=== PATIENT | female | born 1985 | race American Indian/Alaskan Native ===

== ENCOUNTER 2019-09-23 12:41 | Emergency (ER) | payer MEDICAID ==
[2019-09-23 13:57] LABS: HCG Qualitative,Urine Positive (Negative)
[2019-09-23 14:03] LABS: Bilirubin,Urine NEG (Negative); Blood,Urine NEG (Negative); Color,Urine Straw (Yellow); Mucus,Urine FEW /HPF; Protein,Urine <15 mg/dL mg/dL (Negative); Urobilinogen,Urine < 2.0 mg/dL (<2.0)
[2019-09-23 14:43] LABS: Basophils % (Auto) 0.3 % (0.0-1.8); Eosinophils # (Auto) 0.1 K/mm3 (0.0-0.4); Eosinophils % (Auto) 0.9 % (0.0-4.3); Hematocrit 36.6 % (30.3-42.9); Hemoglobin 12.1 gm/dl (10.1-14.3); Lymphocytes # (Auto) 3.1 K/mm3 (1.2-5.4); Lymphocytes % (Auto) 27.3 % (13.4-35.0); Mean Corpuscular HGB Conc 33 % (30-34); Mean Corpuscular Volume 88 fl (79-97); Monocytes # (Auto) 0.8 K/mm3 (0.0-0.8); Platelet Count 382 K/mm3 (140-440); Red Blood Count 4.16 M/mm3 (3.65-5.03); Red Cell Distribution Width 14.6 % (13.2-15.2)
[2019-09-23 15:06] LABS: Alanine Aminotransferase 14 units/L (7-56); Albumin 4.4 g/dL (3.9-5); BUN/Creatinine Ratio 18; Blood Urea Nitrogen 9 mg/dL (7-17); Calcium 9.4 mg/dL (8.4-10.2); Hemolysis Index 0
--- NOTE | 2019-09-23 17:08 | Emergency Department Report ---
Chief Complaint: Abdominal Pain Stated Complaint: ABD PAIN Time Seen by Provider: 09/23/19 15:40 - HPI History of Present Illness: 34-year-old female presents to the ED stating that her EDI PROGRAMMER called her at home given her positive results of chlamydia and telling her to come to the ED for evaluation. Patient denies any vaginal discharge, pelvic pain, vaginal bleed, fever, chills, urinary symptoms - ROS Review of Systems: As noted in HPI - Exam Physical Exam: GENERAL: Alert and oriented x3, no apparent distress, Normal Gait, atraumatic. ABDOMEN: No organomegaly was noted,Positive bowel sounds, soft, and non- distended. . Nontender to palpation on all Quadrants, NO CVA tenderness. SKIN: Warm and dry, No lesions, No ulceration or induration present. MSE screening note: Focused history and physical exam performed. Due to findings the following was ordered: ED Medical Decision Making - Lab Data Result diagrams: 09/23/19 14:20 09/23/19 14:20 Laboratory Last Values WBC 11.2 K/mm3 (4.5-11.0) H 09/23/19 14:20 RBC 4.16 M/mm3 (3.65-5.03) 09/23/19 14:20 Hgb 12.1 gm/dl (10.1-14.3) 09/23/19 14:20 Hct 36.6 % (30.3-42.9) 09/23/19 14:20 MCV 88 fl (79-97) 09/23/19 14:20 MCH 29 pg (28-32) 09/23/19 14:20 MCHC 33 % (30-34) 09/23/19 14:20 RDW 14.6 % (13.2-15.2) 09/23/19 14:20 Plt Count 382 K/mm3 (140-440) 09/23/19 14:20 Lymph % (Auto) 27.3 % (13.4-35.0) 09/23/19 14:20 [place] % (Auto) 7.0 % (0.0-7.3) 09/23/19 14:20 Eos % (Auto) 0.9 % (0.0-4.3) 09/23/19 14:20 Baso % (Auto) 0.3 % (0.0-1.8) 09/23/19 14:20 Lymph # 3.1 K/mm3 (1.2-5.4) 09/23/19 14:20 [place] # 0.8 K/mm3 (0.0-0.8) 09/23/19 14:20 Eos # 0.1 K/mm3 (0.0-0.4) 09/23/19 14:20 Baso # 0.0 K/mm3 (0.0-0.1) 09/23/19 14:20 Seg Neutrophils % 64.5 % (40.0-70.0) 09/23/19 14:20 Seg Neutrophils # 7.2 K/mm3 (1.8-7.7) 09/23/19 14:20 Sodium 137 mmol/L (137-145) 09/23/19 14:20 Potassium 3.9 mmol/L (3.6-5.0) 09/23/19 14:20 Chloride 98.4 mmol/L (98-107) 09/23/19 14:20 Carbon Dioxide 25 mmol/L (22-30) 09/23/19 14:20 Anion Gap 18 mmol/L 09/23/19 14:20 BUN 9 mg/dL (7-17) 09/23/19 14:20 Creatinine 0.5 mg/dL (0.7-1.2) L 09/23/19 14:20 Estimated GFR > 60 ml/min 09/23/19 14:20 BUN/Creatinine Ratio 18 % 09/23/19 14:20 Glucose 98 mg/dL (65-100) 09/23/19 14:20 Calcium 9.4 mg/dL (8.4-10.2) 09/23/19 14:20 Total Bilirubin 0.20 mg/dL (0.1-1.2) 09/23/19 14:20 AST 15 units/L (5-40) 09/23/19 14:20 ALT 14 units/L (7-56) 09/23/19 14:20 Alkaline Phosphatase 57 units/L (35-129) 09/23/19 14:20 Total Protein 7.9 g/dL (6.3-8.2) 09/23/19 14:20 Albumin 4.4 g/dL (3.9-5) 09/23/19 14:20 Albumin/Globulin Ratio 1.3 % 09/23/19 14:20 HCG, Quant 72203 mIU/mL (0-4) H 09/23/19 14:20 Urine Color Straw (Yellow) 09/23/19 13:28 Urine Turbidity Hazy (Clear) 09/23/19 13:28 Urine pH 6.0 (5.0-7.0) 09/23/19 13:28 Ur Specific [place] 1.009 (1.003-1.030) 09/23/19 13:28 Urine Protein <15 mg/dl mg/dL (Negative) 09/23/19 13:28 Urine Glucose (UA) Neg mg/dL (Negative) 09/23/19 13:28 Urine Ketones Neg mg/dL (Negative) 09/23/19 13:28 Urine Blood Neg (Negative) 09/23/19 13:28 Urine Nitrite Neg (Negative) 09/23/19 13:28 Ur Reducing Substances Not Reportable 09/23/19 13:28 Urine Bilirubin Neg (Negative) 09/23/19 13:28 Urine Ictotest Not Reportable 09/23/19 13:28 Urine Urobilinogen < 2.0 mg/dL (<2.0) 09/23/19 13:28 Ur Leukocyte Esterase Mod (Negative) 09/23/19 13:28 Urine WBC (Auto) 2.0 /HPF (0.0-6.0) 09/23/19 13:28 Urine RBC (Auto) 4.0 /HPF (0.0-6.0) 09/23/19 13:28 U Epithel Cells (Auto) 4.0 /HPF (0-13.0) 09/23/19 13:28 Urine Mucus Few /HPF 09/23/19 13:28 Urine HCG, Qual Positive (Negative) A 09/23/19 13:28 Blood Type O NEGATIVE 09/23/19 14:20 - Medical Decision Making 34-year-old female who presented for chlamydial infection. Discussed with patient that we will treat her infection and to follow-up with the EDI PROGRAMMER. Patient was in no acute distress. Patient will follow up with [facility] ED Disposition for MSE Clinical Impression: STD (sexually transmitted disease) Disposition: - TO HOME OR SELFCARE Is pt being admited?: No Does the pt Need Aspirin: No Condition: Stable Instructions: Chlamydia Infection (ED), Abdominal Pain (ED) Additional Instructions: Make sure to follow up with the obgyn as discussed. Take all your medications as you've been prescribed. If you have any worsening symptoms or develop new symptoms please return to ED immediately. Prescriptions: Azithromycin 500 mg PO ONCE #2 tablet Referrals: [facility] [Provider Group] - 3-5 Days [facility] [Provider Group] - 3-5 Days Forms: Accompanied Note, Work/School Release Form(ED) Time of Disposition: 17:09
== END 2019-09-23 17:23 | disposition home or self-care (01) ==
LOC: ED 12:41
DX: A56.8 Sexually transmitted chlamydial infection of other sites (principal)
CPT/HCPCS: 36415; 80053; 81001; 81025; 84702; 85025; 86900; 86901

== ENCOUNTER 2020-03-03 15:51 | Outpatient (CLI) | payer MEDICAID | END 2020-03-03 18:10 | disposition home or self-care (01) | LOC: LAB 15:51 → APU 17:23 → LAB 18:10 | PROVIDERS: ATTEND Obstetrics & Gynecology | DX: O26.893 Other specified pregnancy related conditions, third trimester (principal); Z67.41 Type O blood, Rh negative; O16.3 Unspecified maternal hypertension, third trimester; F32.9 Major depressive disorder, single episode, unspecified; Z3A.29 29 weeks gestation of pregnancy | CPT/HCPCS: 86850; 86900; 86901; 96372; J2790 ==

== ENCOUNTER 2020-04-24 14:42 | Outpatient (CLI) | payer MEDICAID ==
[2020-04-24 15:27] VITALS: BP 127/62
--- NOTE | 2020-04-24 17:11 | Ultrasound Report ---
ULTRASOUND OBSTETRIC INDICATION / CLINICAL INFORMATION: QUESTIONABLE IF MEMBRANES ARE RUPTURED - YVON. Clinical Gestational Age (GA): TECHNIQUE: Transabdominal. COMPARISON: None available. FINDINGS: There is a single intrauterine . Heart Rate: 141 beats per minute. Estimated Weight in grams (if calculated): Estimated Weight Growth Percentile (if calculated): Position: cephalic. Cervix: closed. Length in cm (if measured): Placenta: Fundal and free of the os. Amniotic Fluid Volume: normal Amniotic Fluid Index (YVON) in cm (if calculated): 14.1. Maternal Adnexa: No significant abnormality. IMPRESSION: 1. YVON 14.1 Signer Name: Floyd Valdivia MD Signed: 04/24/2020 5:06 PM Workstation Name: [id number]
== END 2020-04-24 16:46 | disposition home or self-care (01) ==
LOC: APU 14:42 → TRG 14:42 → APU 14:45 → TRG 16:46
PROVIDERS: ATTEND Obstetrics & Gynecology
DX: O42.913 Preterm premature rupture of membranes, unspecified as to length of time between rupture and onset of labor, third trimester (principal); Z3A.37 37 weeks gestation of pregnancy
CPT/HCPCS: 59025; 76815

== ENCOUNTER 2020-04-30 01:12 | Outpatient (CLI) | payer MEDICAID ==
[2020-04-30 01:37] VITALS: BP 116/71
== END 2020-04-30 03:50 | disposition home or self-care (01) ==
LOC: TRG 01:12 → APU 01:19 → TRG 03:50
PROVIDERS: ATTEND Obstetrics & Gynecology
DX: O47.1 False labor at or after 37 completed weeks of gestation (principal); Z3A.38 38 weeks gestation of pregnancy
CPT/HCPCS: 59025

== ENCOUNTER 2020-05-03 10:25 | Inpatient (IN) | payer MEDICAID ==
[2020-05-03] MEDS ORDERED: ONDANSETRON 4 MG/2 ML INJ IV PRN ×2 (10:35→21:11)
[2020-05-03] MEDS ORDERED: TERBUTALINE 1 MG/1 ML INJ SUB-Q PRN (10:35)
[2020-05-03] MEDS ORDERED: miSOPROStol 200 MCG TAB PR PRN (10:35)
[2020-05-03] MEDS ORDERED: fentaNYL 100 MCG/2 ML INJ IV PRN (10:35)
[2020-05-03] MEDS ORDERED: AMPICILLIN/NS 2 GM/100 ML 2 GM/100 ML BAG IV ONE (10:35)
[2020-05-03] MEDS ORDERED: METHYLERGONOVINE MALEATE 0.2 MG/ML VIAL IM PRN (10:35)
[2020-05-03] MEDS ORDERED: NALOXONE 0.4 MG/1 ML INJ IV PRN (10:35)
[2020-05-03] MEDS ORDERED: LIDOCAINE (2%) 20 MG/1 ML VIAL 20 ML MDV INFILTRATI NR (10:35)
--- NOTE | 2020-05-03 10:46 | History and Physical Report ---
History of Present Illness Date of examination: 05/03/20 Chief complaint: I'm leaking History of present illness: Pt is a 25 year old -[place] female ALINA 05/13/20 at 38w4d who presents with complaint of rupture of membranes "about two days ago." On exam, the patient's perineum in wet and there is pooling of clear fluid on speculum exam. She reports irregular contractions and denies vaginal bleeding. She does report good movement. 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 She is GBS Negative. Past History Past Medical History: other (ADHD, Morbid Obesity) Past Surgical History: GREENKEEPER/uterine surgery (IUD removal ) GREENKEEPER History: chlamydia (treated with negative test of cure ), herpes, trichomonas (remote from this ) Family/Genetic History: hypertension Social history: no significant social history - Obstetrical History Expected Date of Delivery: 05/13/20 Actual Gestation: 38 Week(s) 4 Day(s) : 5 Para: 3 Hx # Term Pregnancies: 3 Number of Pregnancies: 0 Spontaneous Abortions: 0 Induced : 1 Number of Living Children: 3 Medications and Allergies Allergies Allergy/AdvReac Type Severity Reaction Status Date / Time No Known Allergies Allergy Verified 09/23/19 13:12 Home Medications Medication Instructions Recorded Confirmed Last Taken Type Famotidine [Pepcid] 20 mg PO BID #20 tablet 10/29/13 Unknown Rx Naproxen [Naprosyn] 375 mg PO BID PRN #20 tablet 10/29/13 Unknown Rx Azithromycin 500 mg PO ONCE #2 tablet 09/23/19 Unknown Rx Active Meds: Active Medications Butorphanol Tartrate (Butorphanol 2 Mg/1 Ml Inj) 2 mg IV Q2H PRN PRN Reason: Pain , Severe (7-10) Ephedrine Sulfate (Ephedrine Sulfate 50 Mg/1 Ml Inj) 10 mg IV Q2M PRN PRN Reason: Hypotension Fentanyl (Fentanyl 100 Mcg/2 Ml Inj) 100 mcg IV Q2H PRN PRN Reason: Pain,Severe (7-10) LABOR PAIN Oxytocin/Sodium Chloride (Pitocin/Ns 30 Unit/500ml) 30 units in 500 mls @ 2 mls/hr IV TITR NABOR; Protocol Lactated Ringer's (Lactated Ringers) 1,000 mls @ 125 mls/hr IV DIRECT NABOR Oxytocin/Sodium Chloride (Pitocin/Ns 30 Unit/500ml) 30 units in 500 mls @ 40 mls/hr IV TITR NABOR; Protocol Ampicillin Sodium (Ampicillin/Ns 2 Gm/100 Ml) 2 gm in 100 mls @ 100 mls/hr IV ONCE ONE; Protocol Stop: 05/03/20 11:34 Ampicillin Sodium (Ampicillin/Ns 1 Gm/50 Ml) 1 gm in 50 mls @ 100 mls/hr IV Q4H NABOR; Protocol Lidocaine (Lidocaine (2%) 20 Mg/1 Ml Vial 20 Ml Mdv) 20 ml INFILTRATI ONCE ONE Stop: 05/03/20 10:36 Methylergonovine Maleate (Methylergonovine Maleate 0.2 Mg/Ml Vial) 0.2 mg IM ONCE PRN PRN Reason: Uterine Bleeding Mineral Oil (Mineral Oil 30 Ml Oral Liqd) 30 ml PO QHS PRN PRN Reason: Constipation Misoprostol (Misoprostol 200 Mcg Tab) 800 mcg TN ONCE PRN PRN Reason: Uterine Bleeding Naloxone HCl (Naloxone 0.4 Mg/1 Ml Inj) 0.1 mg IV Q2MIN PRN PRN Reason: Res Rate </= 8 or 02 SAT < 92% Ondansetron HCl (Ondansetron 4 Mg/2 Ml Inj) 4 mg IV Q8H PRN PRN Reason: Nausea And Vomiting Terbutaline Sulfate (Terbutaline 1 Mg/1 Ml Inj) 0.25 mg SUB-Q ONCE PRN PRN Reason: Hyperstimulation/Hypertonicity Review of Systems All systems: negative - Physical Exam Breasts: Positive: deferred Abdomen: Positive: soft (obese, gravid ) Genitourinary (Female): Positive: normal external genitalia Vagina: Positive: other (pooling of clear fluid ) Uterus: Positive: enlarged (gravid ) Extremities: Positive: edema (trace ) - Obstetrical Cervical Dilatation: 3 Cervical Effacement Percentage: 50 station: -3 Uterine Contraction Pattern: Irregular Uterine Tone Measurement Phase: Resting Uterine Contraction Intensity: Mild Results All other labs normal. Assessment and Plan A: IUP at 38w4d PROM Prolonged ROM Right mutlicystic kidney Rh Negative s/p Rhogam 03/03/20 Morbid Obesity Amniotic Band H/o Preeclampsia Bilateral Lower Extremity Edema s/p Vein Referral Chlamydia treated with negative test of cure Genital Herpes without lesion or prodrome GBS Negative P: Admit to labor and delivery Begin antibiotics for prolonged rupture Pitocin induction of labor NICU consult for multicystic kidney Closely monitor maternal and status
[2020-05-03] MEDS ORDERED: BUTORPHANOL 2 MG/1 ML INJ IV PRN (11:00)
[2020-05-03] MEDS ORDERED: ePHEDrine SULFATE 50 MG/1 ML INJ IV PRN ×2 (11:00→13:30)
[2020-05-03] MEDS ORDERED: valACYclovir 500 MG TAB PO SCH (11:00)
[2020-05-03] MEDS ORDERED: OXYTOCIN DRIP 30 UNITS/500 ML BAG IV SCH ×2 (11:00)
[2020-05-03] MEDS: LACTATED RINGERS 1,000 ML IV SCH ×4 (11:25→16:29)
[2020-05-03 11:54] LABS: Hemoglobin 12.4 gm/dl (10.1-14.3); Mean Corpuscular HGB Conc 33 % (30-34); Mean Corpuscular Volume 86 fl (79-97); Platelet Count 330 K/mm3 (140-440); Red Blood Count 4.45 M/mm3 (3.65-5.03); Red Cell Distribution Width 16.1 % (13.2-15.2)
--- NOTE | 2020-05-03 13:04 | Anesthesia Consultation ---
Anesthesia Consult and Med Hx Date of service: 05/03/20 - Airway Anesthetic Teeth Evaluation: Poor ROM Head & Neck: Adequate Mental/Hyoid Distance: Adequate Mallampati Class: Class III Intubation Access Assessment: Possibly Difficult - Pulmonary Exam CTA: Yes - Cardiac Exam Cardiac Exam: RRR - Pre-Operative Health Status ASA Pre-Surgery Classification: ASA3 Proposed Anesthetic Plan: Epidural - Pulmonary Hx Smoking: No Hx Asthma: No Hx Respiratory Symptoms: No SOB: No COPD: No Home Oxygen Therapy: No Hx Pneumonia: No Hx Sleep Apnea: No - Cardiovascular System Hx Hypertension: No Hx Coronary Artery Disease: No Hx Heart Attack/AMI: No Hx Angina: No Hx Percutaneous Transluminal Coronary Angioplasty (PTCA): No Hx Cardia Arrhythmia: No Hx Pacemaker: No Hx Internal Defibrillator: No Hx Valvular Heart Disease: No Hx Heart Murmur: No Hx Peripheral Vascular Disease: No (Bilateral Lower extrimities +3 edema) - Central Nervous System Hx Neuromuscular Disorder: No Hx Seizures: No CVA: No Hx Back Pain: Yes Hx Psychiatric Problems: No - Gastrointestinal Hx Ulcer: No Hx Gastroesophageal Reflux Disease: Yes - Endocrine Hx Renal Disease: No Hx End Stage Renal Disease: No Hx Cirrhosis: No Hx Liver Disease: No Hx Insulin Dependent Diabetes: No Hx Non-Insulin Dependent Diabetes: No Hx Thyroid Disease: No Hx Hypothyroidism: No Hx Hyperthyroidism: No - Hematic Hx Anemia: No Hx Sickle Cell Disease: No - Other Systems Hx Alcohol Use: Yes (not during ) Hx Substance Use: No Hx Cancer: No Hx Obesity: Yes
--- NOTE | 2020-05-03 13:05 | Progress Note ---
Labor Epidural - Labor Epidural Start Time: 13:18 Stop Time: 13:38 Performed by:: MORELIA AUSTIN Procedure: Patient is requesting a laboring epidural for laboring pain. Patient IDed, H&P reviewed, all questions and concerns were answered, and consent was signed. Timeout was performed at bedside. Patient in sitting position. Sterile prep and drape was performed. [3] ml of 1% lidocaine skin wheal at L[3]- L [4]. 18- gauge Tuohy epidural needle was advanced to loss of resistance with air technique 8cm. Negative CSF negative blood. Epidural catheter advanced to [12] centimeters. [NEGATIVE] Aspiration [NEGATIVE] test dose. Sterile dressing applied. Patient tolerated procedure.
[2020-05-03] MEDS ORDERED: NALOXONE 2 MG/2 ML INJ IV PRN (13:30)
[2020-05-03] MEDS ORDERED: fentaNYL-BUPIV 2 MCG/ML-0.125% 200 MCG/100 ML BAG EPIDURAL SCH (14:00)
--- NOTE | 2020-05-03 14:22 | Consultation ---
Consult Note - Parent Education Parent(s) demonstrated understanding of all the information:: Yes Additional Comment: Term male diagnosed prenatally with right pylectasis, resolved polyhydramnios, ?multicystic kidney Mother states specialist did not do another US in office, did not have all information from OB and stated that " can live with one functioning kidney anyway" Explained exam, monitoring of I&O and renal US at 24 HOL to assess status. Explained difference between pylectasis and multicystic kidney. Mother verbalized understanding Assessment and Plan - Assessment Gestation:: 38 Baby's gender: Male - Plan Plan: No need for NICU team to attend delivery, RONNIE sufficient, will assess after delivery Please call NICU with questions
[2020-05-03] MEDS ORDERED: AMPICILLIN/NS 1 GM/50 ML 1 GM/50 ML BAG IV SCH (14:37)
[2020-05-03] MEDS ORDERED: MINERAL OIL 30 ML ORAL LIQD ONE (17:18)
--- NOTE | 2020-05-03 17:51 | Procedure Note ---
OB Delivery Note - Delivery Date of Delivery: 05/03/20 Surgeon: REY TAO Estimated blood loss: 500cc - Vaginal Delivery presentation: vertex Delivery position: OA Intrapartum events: PROM->1hr before delivery, decreased FHT variability, mult.variable deceleratio, uterine atony (s/p Methergine 0.2 mg IM, Misoprostol 800 mcg PRN) Delivery induction: oxytocin Delivery augmentation: pitocin Delivery monitor: external FHT, external uterine Route of delivery: Delivery placenta: spontaneous Delivery cord: other (Body cord ) Episiotomy: none Delivery laceration: none Anesthesia: epidural - Infant A at 1 minute: 8 at 5 minutes: 9 Gender: Male (3068g (6lb 12.2 oz) @ 1729 pm)
[2020-05-03] MEDS ORDERED: diphenhydrAMINE 25 MG CAP PO PRN (21:11)
[2020-05-03] MEDS ORDERED: PROMETHAZINE 25 MG RECT SUPP PR PRN (21:11)
[2020-05-03] MEDS ORDERED: MAGNESIUM HYDROXIDE (MOM) ORAL LIQD UDC PO PRN (21:11)
[2020-05-03] MEDS ORDERED: BENZOCAINE/MENTHOL 20/0.5% TOP SPRAY 56 GM TP PRN (21:11)
[2020-05-03] MEDS ORDERED: PROMETHAZINE 25 MG TAB PO PRN (21:11)
[2020-05-03] MEDS ORDERED: WITCH HAZEL/ GLYCERIN PAD TP PRN (21:11)
[2020-05-03] MEDS ORDERED: LANOLIN/ZINC/DIMETHICONE (LANSINOH) 7 GM TP PRN ×2 (21:11)
[2020-05-03] MEDS: FERROUS SULFATE 325 MG TAB PO SCH (21:25)
[2020-05-03] MEDS: HYDROcodone/ACETAMINOPHEN 5-325 MG TAB PO PRN (21:25)
[2020-05-03] MEDS ORDERED: MINERAL OIL 30 ML ORAL LIQD PO PRN (22:00)
[2020-05-04] MEDS: IBUPROFEN 600 MG TAB PO SCH ×5 (00:19→18:11)
[2020-05-04 06:15] LABS: Hematocrit 34.9 % (30.3-42.9); Hemoglobin 11.4 gm/dl (10.1-14.3)
--- NOTE | 2020-05-04 06:18 | Post Anesthesia Evaluation ---
- Post Anesthesia Evaluation Patient Participated: Yes Airway Patent: Yes Stable Respiratory Function: Yes Nausea/Vomiting: No Temp > 96.8F: Yes Pain Manageable: Yes Adequeate Hydration: Yes Anesthesia Complications: No Block Receding Appropriately: Yes Patient on Ventilator: No
--- NOTE | 2020-05-04 08:12 | Progress Note ---
Assessment and Plan A: PPD1 at term. M.O. 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 Rh negative (Rhogam received 03/03). R. pyelectasis. GBS negative. P: Routine care. [place] to complete US of kidney later today. Subjective - Subjective Date of service: 05/04/20 Principal diagnosis: PPD1 s/p at term. Interval history: PPD1 s/p at term Patient reports: appetite normal, voiding normally, pain well controlled, ambulating normally : doing well Objective - Vital Signs Latest vital signs: Vital Signs Temp Pulse Resp BP BP Pulse Ox 05/04/20 05:56 97.8 F 63 18 112/61 99 05/04/20 01:13 98.8 F 78 18 120/71 98 05/03/20 20:03 95 H 138/72 05/03/20 20:00 98.8 F 05/03/20 18:44 90 144/81 05/03/20 18:41 86 100 05/03/20 18:36 92 H 95 05/03/20 18:34 100 H 150/93 05/03/20 18:31 93 H 96 05/03/20 18:26 96 H 99 05/03/20 18:21 94 H 100 05/03/20 18:16 101 H 99 05/03/20 18:11 104 H 100 05/03/20 18:06 99 H 100 05/03/20 18:04 103 H 127/61 05/03/20 18:01 102 H 99 05/03/20 17:56 96 H 99 05/03/20 17:51 97 H 99 05/03/20 17:46 94 H 100 05/03/20 17:41 88 100 05/03/20 17:36 92 H 113/75 100 05/03/20 17:31 77 100 05/03/20 17:26 95 H 100 05/03/20 17:24 92 H 66 L 05/03/20 17:21 134 H 61 L 05/03/20 17:16 72 83 L 05/03/20 17:08 96 H 100 05/03/20 17:05 74 91 05/03/20 17:03 111 H 100 05/03/20 16:59 122 H 94 05/03/20 16:58 102 H 100 05/03/20 16:53 120 H 84/48 98 05/03/20 16:48 104 H 100 05/03/20 16:43 110 H 100 05/03/20 16:40 115 H 92 05/03/20 16:38 104 H 100 05/03/20 16:34 104 H 120/68 05/03/20 16:33 106 H 100 05/03/20 16:28 85 100 05/03/20 16:23 101 H 100 05/03/20 16:18 92 H 100 05/03/20 16:13 109 H 100 05/03/20 16:08 91 H 100 05/03/20 16:04 89 116/57 88 05/03/20 16:03 88 92 05/03/20 15:58 93 H 100 05/03/20 15:53 101 H 100 05/03/20 15:48 112 H 100 05/03/20 15:43 95 H 100 05/03/20 15:38 95 H 100 05/03/20 15:33 97 H 108/57 100 05/03/20 15:32 120 H 108/67 87 05/03/20 15:29 108 H 106/58 05/03/20 15:28 110 H 100 05/03/20 15:27 103 H 110/60 05/03/20 15:25 111 H 112/57 05/03/20 15:24 123 H 126/74 05/03/20 15:23 127 H 100 05/03/20 15:21 95 H 104/53 05/03/20 15:19 104 H 116/59 05/03/20 15:18 104 H 100 05/03/20 15:17 100 H 110/56 05/03/20 15:15 117 H 114/59 05/03/20 15:14 107 H 113/58 91 05/03/20 15:13 106 H 97 05/03/20 15:11 97 H 102/56 05/03/20 15:09 100 H 107/63 05/03/20 15:08 88 100 05/03/20 15:07 90 109/61 05/03/20 15:05 93 H 105/62 05/03/20 15:03 101 H 109/69 100 05/03/20 15:01 85 102/61 05/03/20 14:59 99 H 109/63 05/03/20 14:58 98 H 100 05/03/20 14:57 102 H 108/62 05/03/20 14:55 107 H 104/60 05/03/20 14:53 103 H 104/60 100 05/03/20 14:51 96 H 104/59 05/03/20 14:49 109 H 98/60 05/03/20 14:48 94 H 100 05/03/20 14:47 89 100/58 90 05/03/20 14:45 93 H 110/60 05/03/20 14:43 89 110/61 100 05/03/20 14:41 100 H 108/63 05/03/20 14:39 93 H 107/59 05/03/20 14:38 94 H 100 05/03/20 14:37 92 H 107/58 05/03/20 14:35 104 H 100/57 05/03/20 14:33 95 H 93/55 100 05/03/20 14:31 99 H 97/51 05/03/20 14:29 93 H 107/55 05/03/20 14:28 101 H 100 05/03/20 14:27 93 H 106/55 05/03/20 14:25 100 H 103/55 05/03/20 14:23 96 H 102/58 97 05/03/20 14:21 100 H 96/54 05/03/20 14:19 91 H 106/57 05/03/20 14:18 95 H 100 05/03/20 14:17 102 H 98/51 05/03/20 14:15 97 H 104/57 05/03/20 14:13 105 H 105/56 96 05/03/20 14:09 94 H 105/55 05/03/20 14:08 93 H 100 05/03/20 14:07 94 H 105/58 05/03/20 14:05 98 H 109/60 05/03/20 14:04 86 86/47 05/03/20 14:03 76 100 05/03/20 14:01 65 91 05/03/20 14:00 71 106/55 05/03/20 13:58 64 107/54 99 05/03/20 13:56 74 90 05/03/20 13:53 111 H 101/52 100 05/03/20 13:51 101 H 114/52 05/03/20 13:49 113 H 113/64 05/03/20 13:48 111 H 100 05/03/20 13:47 109 H 114/58 05/03/20 13:46 102 H 122/58 05/03/20 13:44 111 H 87 05/03/20 13:43 110 H 91 05/03/20 13:41 111 H 115/58 05/03/20 13:39 100 H 114/62 05/03/20 13:38 103 H 99 05/03/20 13:37 88 126/58 05/03/20 13:36 94 H 128/58 05/03/20 13:33 105 H 147/56 100 05/03/20 13:31 82 66 L 05/03/20 13:29 113 H 129/60 05/03/20 13:28 103 H 100 05/03/20 13:27 100 H 122/59 05/03/20 13:25 99 H 118/67 05/03/20 13:23 71 100 05/03/20 13:22 104 H 91 05/03/20 13:19 96 H 117/72 05/03/20 13:18 94 H 100 05/03/20 13:17 95 H 113/61 05/03/20 13:15 90 114/60 05/03/20 13:14 90 136/64 05/03/20 13:13 90 98 05/03/20 13:10 101 H 88 05/03/20 13:08 92 H 99 05/03/20 13:07 80 122/60 05/03/20 13:05 81 128/66 05/03/20 13:03 85 99 05/03/20 12:58 82 99 05/03/20 12:53 79 100 05/03/20 12:48 88 100 05/03/20 12:43 84 100 05/03/20 12:38 79 99 05/03/20 12:33 81 100 05/03/20 12:28 88 100 05/03/20 12:23 86 100 05/03/20 12:18 97 H 100 05/03/20 12:13 88 99 05/03/20 12:08 88 99 05/03/20 12:03 98 H 99 05/03/20 11:58 102 H 99 05/03/20 11:53 101 H 97 05/03/20 11:48 97 H 99 05/03/20 11:43 96 H 99 05/03/20 11:38 91 H 99 05/03/20 11:33 95 H 99 05/03/20 11:28 86 99 05/03/20 11:23 93 05/03/20 11:15 78 116/70 05/03/20 11:06 98.0 F 78 18 116/70 Intake and Output 05/03/20 05/04/20 05/04/20 23:59 07:59 15:59 Intake Total 181.25 840 Output Total 300 800 Balance -118.75 40 Intake: IV 181.25 Lactated Ringers 1,000 ml 181.25 @ 125 mls/hr IV DIRECT NABOR Rx#:[id number] Intake, Free Water 840 Output: Urine 300 800 Indwelling Catheter 300 Void 800 Other: Total, Output Amount 0 800 # Voids Void 2 Estimated Blood Loss 500 - Exam Breasts: Present: deferred Uterus: Present: normal, firm, fundal height at umbilicus - Labs Labs: Abnormal lab results 05/03/20 Range/Units 11:30 RDW 16.1 H (13.2-15.2) %
[2020-05-04] MEDS: HYDROcodone/ACETAMINOPHEN 5-325 MG TAB PO PRN ×2 (08:57→16:07)
[2020-05-04] MEDS: FERROUS SULFATE 325 MG TAB PO SCH ×2 (11:41→22:07)
[2020-05-04] MEDS ORDERED: MEASLES, MUMPS & RUBELLA 12,500 UNIT/0.5 ML VACCINE SUB-Q ONE (17:53)
--- NOTE | 2020-05-04 18:12 | Discharge Summary ---
Providers - Providers Date of Admission: 05/03/20 10:35 Date of discharge: 05/05/20 Attending physician: REY TAO 05/03/20 10:39 Consult to Physician [CONS] Routine Comment: Consulting Provider: SPENCER CHRISTINA Physician Instructions: Reason For Exam: IUP at 38 wks, right multicystic kidney 49.6 mm 05/03/20 21:11 Consult to Softlines Supervisor [CONS] Routine Reason For Exam: assistance with , SNS Primary care physician: REY TAO Hospitalization Reason for admission: rupture of membranes, IUP at term Delivery: Episiotomy: none Laceration: none Other procedures: none complications: uterine atony (received methergine and cytotec ) Discharge diagnosis: IUP at term delivered [place] baby: male Condition at discharge: Good Disposition: DC-01 TO HOME OR SELFCARE Plan - Provider Discharge Summary Activity: no sex for 6 weeks, no heavy lifting 4 weeks, no strenuous exercise Diet: routine Instructions: routine Additional instructions: [] Smoking cessation referral if applicable(refer to patient education folder for contact #) [] Refer to [facility] Book[facility] Call your doctor immediately for: * Fever > 100.5 * Heavy vaginal bleeding ( >1 pad per hour) * Severe persistent headache * Shortness of breath * Reddened, hot, painful area to leg or breast * Drainage or odor from incision. * Keep incision clean and dry at all times and follow doctor's instructions regarding bathing/showering - Follow up plan Follow up: REY TAO MD [Primary Care Provider] - 05/31/20
[2020-05-05] MEDS: IBUPROFEN 600 MG TAB PO SCH ×3 (00:30→12:10)
[2020-05-05] MEDS ORDERED: DIPHtheria,PERTUSSIS(ACELL),TETANUS VACCINE/PF 0.5 ML VIAL IM ONE (06:00)
[2020-05-05] MEDS: FERROUS SULFATE 325 MG TAB PO SCH (10:02)
[2020-05-05 15:27] VITALS: BP 121/72
== END 2020-05-05 14:45 | disposition home or self-care (01) | DRG 774 ==
LOC: LD 10:25 → TRG 10:25 → LD 10:35 → OB 21:08
PROVIDERS: ADMIT Obstetrics & Gynecology; ATTEND Obstetrics & Gynecology
PROC: 10E0XZZ Delivery of Products of Conception, External Approach (ICD-10-PCS; principal; 2020-05-03)
PROC: 3E0R3BZ Introduction of Anesthetic Agent into Spinal Canal, Percutaneous Approach (ICD-10-PCS; 2020-05-03)
PROC: 00HU33Z Insertion of Infusion Device into Spinal Canal, Percutaneous Approach (ICD-10-PCS; 2020-05-03)
PROC: 3E033VJ Introduction of Other Hormone into Peripheral Vein, Percutaneous Approach (ICD-10-PCS; 2020-05-03)
PROC: 3E0234Z Introduction of Serum, Toxoid and Vaccine into Muscle, Percutaneous Approach (ICD-10-PCS; 2020-05-05)
PROC: 3E0134Z Introduction of Serum, Toxoid and Vaccine into Subcutaneous Tissue, Percutaneous Approach (ICD-10-PCS; 2020-05-05)
DX: O99.214 Obesity complicating childbirth (principal); O98.32 Other infections with a predominantly sexual mode of transmission complicating childbirth; Z20.822 Contact with and (suspected) exposure to COVID-19; E66.01 Morbid (severe) obesity due to excess calories; A60.09 Herpesviral infection of other urogenital tract; F90.9 Attention-deficit hyperactivity disorder, unspecified type; O99.344 Other mental disorders complicating childbirth; Z3A.38 38 weeks gestation of pregnancy; Z37.0 Single live birth; Z82.49 Family history of ischemic heart disease and other diseases of the circulatory system; Z79.899 Other long term (current) drug therapy; Z79.2 Long term (current) use of antibiotics
CPT/HCPCS: 36415; 59025; 85014; 85018; 85027; 86592; 86850; 86900; 86901; 88307; 90471; G0378; J0290; J2210; J2590; J7120; U0003